=== PATIENT | female | born 1960 | race Caucasian/White ===

== ENCOUNTER 2017-08-15 13:08 | Emergency (ER) | payer OTHER, MEDICARE ==
[~2017-08-15] VITALS: Ht 177.8 cm; Wt 117.5 kg
[2017-08-15 16:36] VITALS: BP 130/73
--- NOTE | 2017-08-15 17:34 | ED HEAD/FACIAL INJ COMPLAINT ---
History of Present Illness General Chief Complaint: General Adult Stated Complaint: SWOLLEN ITCHY BUMPS ON FACE,SWOLLEN GLAND Source: patient Exam Limitations: no limitations Vital Signs & Intake/Output Vital Signs & Intake/Output Vital Signs Date Time Temp Pulse Resp B/P B/P Pulse O2 O2 Flow FiO2 Mean Ox Delivery Rate 08/15 1636 95.7 58 19 130/73 97 Room Air 08/15 1318 97.6 69 18 150/98 98 Room Air Allergies Coded Allergies: MDX - PCN (penicillin) (PCN (PENICILLIN)) (11/09/10) Reconcile Medications Clindamycin HCl (Cleocin HCl) 300 MG CAPSULE 1 CAP PO Q6 INFECTION Triage Note: 57 FEMALE TO TRIAGE C/O ITCHY BUMP TO L SIDE OF HEAD. STATES IT STARTED YESTERDAY AND NOW HAS GOTTEN BIGGER. PT ALSO STATES HER GLAND ON THE L SIDE OF HER NECK IS SWOLLEN. Triage Nurses Notes Reviewed? yes Onset: Gradual Severity: severe Location: temporal (LEFT) HPI: Patient presents for evaluation of a gradual onset of a large area of redness and swelling over the left church with lymph node enlargement in front of the left ear. Symptoms have been constant since onset and nothing seems to make them better. Symptoms began over the past 1-2 days. Patient denies any associated fever, cold symptoms or known injury. Past History Travel History Traveled to [place] past 21 day No Medical History Any Pertinent Medical History? see below for history Neurological: NONE EENT: NONE Cardiovascular: hypertension, hyperlipidemia Respiratory: NONE Gastrointestinal: NONE Hepatic: NONE Renal: NONE Musculoskeletal: NONE Psychiatric: NONE Endocrine: NONE Blood Disorders: NONE Cancer(s): NONE RANCH HAND LIVESTOCK/Reproductive: NONE Surgical History Surgical History: non-contributory Psychosocial History What is your primary language German Tobacco Use: Never used Family History Hx Contributory? No Review of Systems Review of Systems Constitutional: Reports: no symptoms. EENTM: Reports: no symptoms. Respiratory: Reports: no symptoms. Cardiovascular: Reports: no symptoms. GI: Reports: no symptoms. Genitourinary: Reports: no symptoms. Musculoskeletal: Reports: no symptoms. Skin: Reports: see HPI. Neurological/Psychological: Reports: no symptoms. Hematologic/Endocrine: Reports: no symptoms. Immunologic/Allergic: Reports: no symptoms. All Other Systems: Reviewed and Negative Physical Exam Physical Exam General Appearance: SEE BELOW Cranial Nerves: SEE BELOW Comments: Gen.: Well-nourished, well-developed, no acute respiratory distress. Head: Normocephalic, atraumatic. Eyes: Normal inspection bilaterally Ears: Normal inspection bilaterally Nose: Normal inspection Face: Soft tissue swelling erythema and mild warmth over the left church with reactive lymphadenopathy pre-auricularly. Throat/mouth : Moist mucosa Neck: Supple, full range of motion, no goiter Lungs: Quiet respirations Back: Normal range of motion Extremities: Normal range of motion grossly, no cyanosis clubbing or edema of the upper extremities Neurologic: Cranial nerves grossly intact, speech is clear Skin: warm and dry Psychiatric: Calm, cooperative, no apparent delusions or hallucinations Progress Differential Diagnosis: CELLULITIS, ABSCESS, FOLLICULITIS, ACNE, INJURY, INSECT BITE Plan of Care: SEE D/C INSTRUCTIONS Departure Departure Disposition: HOME OR SELF CARE Condition: Stable Clinical Impression Primary Impression: Facial cellulitis Referrals: Sherie Blake APRN (PCP/Family) Additional Instructions: Clindamycin as prescribed for your infection. Ibuprofen 600 mg every 6 hours as needed for pain or discomfort. Follow-up with your primary care physician in 48 -72 hours for reevaluation. Return if any concerns or sudden worsening. Please note that there might be incidental findings in your evaluation that are unrelated to the current emergency department visit. Please notify your primary care doctor about this emergency department visit in order to obtain and review all of the testing performed so that these incidental findings can be monitored as needed. If you had an x-ray performed, please understand that some fractures may not be seen on the initial set of x-rays. If your symptoms persist you might need a repeat set of x-rays to check for such a fracture. If you had a laceration evaluated, please understand that foreign bodies such as glass or wood may not be visible to the naked eye or on plain x-rays. If the wound becomes red, swollen, increasingly more painful or if there is any drainage from the wound, please have it reevaluated by a physician for the possibility of a retained foreign body. If you're unable to follow up as outlined in the discharge instructions please return to the emergency department. Thank you for choosing the [facility] for your care. It was a pleasure to serve you today. Nader Calderon M.D. [facility] Departure Forms: Customer Survey General Discharge Information Prescriptions: Current Visit Scripts Clindamycin HCl (Cleocin HCl) 1 CAP PO Q6 #28 CAP
[2017-08-15] MEDS ORDERED: CLEOCIN HCL300 M1 PO (17:43)
== END 2017-08-15 18:03 ==
LOC: ERH 13:08
DX: L03.211 Cellulitis of face (principal)